=== PATIENT | female | born 1995 | race Caucasian/White ===

== ENCOUNTER → 2024-06-29 10:48 | Outpatient (BNVA) | payer SELFPAY | PROVIDERS: Visit Provider Nurse Practitioner Women's Health | DX: Z34.90 Encounter for supervision of normal pregnancy, unspecified, unspecified trimester (principal) | CPT/HCPCS: 81025; 84702; 86850; 86900 ==

== ENCOUNTER → 2024-07-01 14:37 | Outpatient (BNVA) | payer SELFPAY | PROVIDERS: Visit Provider Nurse Practitioner Women's Health | DX: O26.891 Other specified pregnancy related conditions, first trimester (principal); Z3A.01 Less than 8 weeks gestation of pregnancy | CPT/HCPCS: 76817; 84702 ==

== ENCOUNTER → 2024-07-08 09:09 | Outpatient (BNVA) | payer SELFPAY | PROVIDERS: Visit Provider Nurse Practitioner Women's Health | DX: O03.9 Complete or unspecified spontaneous abortion without complication (principal) | CPT/HCPCS: 76817 ==

== ENCOUNTER → 2024-07-13 11:38 | Outpatient (BNVA) | payer SELFPAY | PROVIDERS: Visit Provider Nurse Practitioner Women's Health | DX: N91.2 Amenorrhea, unspecified (principal) | CPT/HCPCS: 84702 ==

== ENCOUNTER 2025-05-26 08:21 | Outpatient (CLI) | payer MEDICAID, SELFPAY ==
--- NOTE | 2025-05-26 08:30 | XR_ITS ---
WS: [id number] Left hand, 3 views, 05/26/2025 Clinical Data: finger injury Comparison: None. Findings: No fractures or dislocations are seen. The soft tissues are unremarkable. The joint spaces are normal XR/XR hand LT min 3V* [id number] Impression: Negative left hand.
== END 2025-05-26 08:22 | disposition home or self-care (01) ==
LOC: RAD 08:24
PROVIDERS: Visit Provider Registered Nurse Neonatal Intensive Care
DX: S69.92XA Unspecified injury of left wrist, hand and finger(s), initial encounter (principal); M79.645 Pain in left finger(s); X58.XXXA Exposure to other specified factors, initial encounter
CPT/HCPCS: 73130